=== PATIENT | female | born 1975 | race Caucasian/White ===

== ENCOUNTER 2023-07-15 14:57 | Emergency (ER) | payer OTHER ==
[2023-07-15] MEDS ORDERED: methylPREDNISolone Sodium Succinate 125 MG/2 ML SDV IM STA (15:17)
[2023-07-15] MEDS ORDERED: diphenhydrAMINE 25 MG Cap PO ONE (15:18)
[2023-07-15] MEDS ORDERED: Ondansetron 4 MG Tab.DIS PO ONE (15:19)
== END 2023-07-15 15:45 | disposition home or self-care (01) ==
LOC: CC.ED 14:57
DX: T63.461A Toxic effect of venom of wasps, accidental (unintentional), initial encounter (principal); F17.210 Nicotine dependence, cigarettes, uncomplicated
CPT/HCPCS: 96372; 99283; A9270-GY; J2930